=== PATIENT | male | born 1970 | race Two or more races ===

== ENCOUNTER 2016-08-04 15:11 | Emergency (ER) | payer OTHER ==
[~2016-08-04] VITALS: Ht 167.6 cm; Wt 100.8 kg
[~2016-08-04 15:11] MED LIST: ADVIL200 M3 PO; IMODIUM A-D2 M1 PO; NAPROSYN500 MG PO; OMEPRAZOLE20 MG PO
[2016-08-04 16:47] LABS: HEMATOCRIT 43.3 % (38.0-50.0); MCHC 34.2 G/DL (30.0-36.0); MCV 84.9 FL (86-99); MEAN PLAT.VOLUME 9.2 uM^3 (9.0-12.4); PLATELET COUNT 197 K/uL (156-360); RBC DIS.WIDTH-CV 13.1 % (11.8-14.6); RBC DIS.WIDTH-SD 40.7 % (39-53); WHITE BLOOD COUNT 9.1 K/uL (4.1-10.2)
[2016-08-04 16:50] LABS: ADD MIUA? YES; BILIRUBIN NEGATIVE; BLOOD SMALL; COLOR YELLOW ((YELLOW)); GLUCOSE (STRIP) NEGATIVE; KETONES NEGATIVE; LEUKOCYTES NEGATIVE; NITRITE NEGATIVE; PROTEIN (STRIP) NEGATIVE; SPECIFIC GRAVITY 1.009 (1.000-1.030); UROBILINOGEN 0.2 MG/DL (0.2-1.0)
[2016-08-04 16:55] LABS: CHLORIDE 103 mEq/L (99-109); SODIUM 138 mEq/L (136-147)
[2016-08-04 16:58] LABS: GLUCOSE 103 mg/dL (70-99)
[2016-08-04 16:58] LABS: BACTERIA RARE /HPF; EPITHELIAL CELLS NONE SEEN /HPF; MUCUS TRACE /LPF; RED BLOOD CELLS 0-5 /HPF (0-5); WHITE BLOOD CELLS 0-5 /HPF (0-5)
[2016-08-04 16:59] LABS: ANION GAP 9 MEQ/L (2-14); TOTAL BILIRUBIN 1.2 mg/dL (0.0-1.0)
[2016-08-04 17:01] LABS: ALKALINE PHOSPHATASE 73 IU/L (3-129); GFR ESTIMATE (CALCULATED) > 59 mL/min/
[2016-08-04 17:02] LABS: UREA NITROGEN (BUN) 13 mg/dL (9-23)
[2016-08-04 17:05] LABS: CREATINE KINASE 94 IU/L (1-294); LIPASE 58 U/L (1.0-51.0)
[2016-08-04 17:44] LABS: DIRECT BILIRUBIN 0.6 mg/dL (0.0-0.3)
[2016-08-04] MEDS ORDERED: ZOFRAN ODT4 MG PO (18:19)
[2016-08-04] MEDS ORDERED: BENTYL20 MG PO (18:19)
[2016-08-04 18:36] VITALS: BP 128/83
== END 2016-08-04 18:37 | disposition home or self-care (01) ==
LOC: EME 15:11
PROVIDERS: Physician Assistant
DX: R10.84 Generalized abdominal pain (principal); M79.1 Myalgia; R19.7 Diarrhea, unspecified; R11.0 Nausea
CPT/HCPCS: 80053; 81003; 82248; 82550; 83690; 85027; 99281; 99284

== ENCOUNTER 2017-10-17 15:16 | Emergency (ER) | payer OTHER ==
[~2017-10-17] VITALS: Ht 170.2 cm; Wt 102.3 kg
[~2017-10-17 15:16] MED LIST changes: +BENTYL20 MG PO; +ZOFRAN ODT4 MG PO
[2017-10-17] MEDS ORDERED: MOTRIN800 MG PO (19:05)
[2017-10-17] MEDS ORDERED: PERCOCET 5/31 TABLET PO (19:05)
[2017-10-17 19:44] VITALS: BP 134/88
== END 2017-10-17 19:45 | disposition home or self-care (01) ==
LOC: EME 15:16
DX: S52.591A Other fractures of lower end of right radius, initial encounter for closed fracture (principal); S52.611A Displaced fracture of right ulna styloid process, initial encounter for closed fracture; X50.1XXA Overexertion from prolonged static or awkward postures, initial encounter; Y93.83 Activity, rough housing and horseplay
CPT/HCPCS: 73100; 99281; 99284; J3010; S0020